=== PATIENT | female | born 1985 | race Caucasian/White ===

== ENCOUNTER 2018-10-09 07:51 | Outpatient (CLI) | payer BC | END 2018-10-09 10:20 | disposition home or self-care (01) | LOC: OBT 07:51 → L-D 07:52 → OBT 10:20 | DX: O36.5930 Maternal care for other known or suspected poor fetal growth, third trimester, not applicable or unspecified (principal); Z3A.36 36 weeks gestation of pregnancy | CPT/HCPCS: 76818 ==

== ENCOUNTER 2018-10-10 10:39 | Outpatient (CLI) | payer BC | END 2018-10-10 11:50 | disposition home or self-care (01) | LOC: OBT 10:39 → L-D 10:39 → OBT 11:50 | DX: O36.5930 Maternal care for other known or suspected poor fetal growth, third trimester, not applicable or unspecified (principal); Z3A.36 36 weeks gestation of pregnancy | CPT/HCPCS: 76818 ==

== ENCOUNTER 2018-10-15 07:09 | Inpatient (IN) | payer BC ==
[~2018-10-15 07:09] MED LIST: OXYTOCIN 30 UNITS/LR 500 ML BAG IV
[2018-10-15] MEDS ORDERED: OXYTOCIN 30 UNITS/LR 500 ML IV ×3 (08:00→09:30)
[2018-10-15] MEDS ORDERED: CEFAZOLIN 2 GM/50 ML (PMX) 50 ML IVPB (08:00)
[2018-10-15] MEDS ORDERED: CARBOPROST 250 MCG INJ IM ×2 (08:00→09:30)
[2018-10-15] MEDS ORDERED: MISOPROSTOL 200 MCG TAB PR ×2 (08:00→09:30)
[2018-10-15] MEDS ORDERED: METHYLERGONOVINE 0.2 MG INJ IM ×2 (08:00→09:30)
[2018-10-15 08:04] LABS: ADD MAN DIFF? NO
[2018-10-15 08:06] LABS: WHITE BLOOD COUNT 7.8 10^3/ul (4.8-10.8)
[2018-10-15 08:06] LABS: BASOPHILS % 0.4 % (0.0-2.0); EOSINOPHILS # 0.1 10^3/ul (0.0-0.5); EOSINOPHILS % 0.8 % (0.0-7.0); HEMATOCRIT 37.2 % (37.0-47.0); LYMPHOCYTES # 1.6 10^3/ul (0.8-2.9); LYMPHOCYTES % 20.4 % (15.0-51.0); MEAN CORPUSCULAR HEMOGLOBIN 30.3 pg (29.0-33.0); MEAN CORPUSCULAR HGB CONC 32.3 g/dl (32.0-37.0); MEAN CORPUSCULAR VOLUME 93.9 fl (82.0-101.0); MEAN PLATELET VOLUME 12.9 fl (7.4-10.4); MONOCYTE # 0.6 10^3/ul (0.3-0.9); MONOCYTES % 7.1 % (0.0-11.0); NEUTROPHIL # 5.6 10^3/ul (1.6-7.5); NEUTROPHILS % 70.9 % (39.0-77.0); PLATELET COUNT 220 10^3/UL (140-415); RED BLOOD COUNT 3.96 10^6/ul (4.20-5.40); RED CELL DISTRIBUTION WIDTH 12.6 % (11.5-14.5)
[2018-10-15] MEDS: LACTATED RINGER'S 1,000 ML IV ×2 (08:19→09:06)
[2018-10-15 08:27] LABS: PARTIAL THROMBOPLASTIN TIME 28.5 Sec (23.0-35.0); PROTIME 12.3 Sec (11.9-14.9)
[2018-10-15 09:06] LABS: HEPATITIS B SURFACE ANTIGEN NEGATIVE (NEGATIVE)
[2018-10-15] MEDS ORDERED: morphine SULFATE/PF (10 MG/10 ML) INJ (09:20)
[2018-10-15] MEDS ORDERED: ONDANSETRON 4 MG INJ (09:20)
[2018-10-15] MEDS ORDERED: PHENYLephrine (100 MCG/ML) 10ML SYG (09:20)
[2018-10-15] MEDS ORDERED: OXYTOCIN 10 UNIT INJ (09:20)
[2018-10-15] MEDS: CEFAZOLIN 2 GM/50 ML (PMX) 50 ML IVPB ×2 (09:28→17:51)
[2018-10-15] MEDS ORDERED: METHYLERGONOVINE 0.2 MG TAB PO (09:30)
[2018-10-15] MEDS ORDERED: HYDROCODONE/APAP (5/325) TAB PO ×2 (09:30)
[2018-10-15] MEDS ORDERED: NA PHOSPHATE/BIPHOS 133 ML ENEMA PR (09:30)
[2018-10-15] MEDS ORDERED: LANOLIN HPA 1 PKT TOP (09:30)
[2018-10-15] MEDS: KETOROLAC 30 MG INJ IV ×3 (09:30→21:32)
[2018-10-15 10:21] LABS: CBV Base Excess -3.1 mmol/L; CBV COHb 0.9 %; CBV Oxygen Sat 53.4 mmHG; Cord Blood Venous AADO2 69.1 mmHg; Cord Blood Venous pO2 24.7 mmHG (15.0-45.0); Fraction OxyHgb Cord Venous 52.3 %; MODE ROOM AIR; MetHgb Cord Venous 1.2 %; Sample Type CBV; Site CORD
[2018-10-15 10:24] LABS: AADO2 Cord Arterial 59.7 mmHg; Arterial Cord Blood pCO2 59.8 mmHG (25-50); CBA Base Excess -5.7 mmol/L; CBA COHb 0.2 %; CBA Oxygen Sat 24.6 mmHG; CBA Total Hemglobin 16.5 g/dl; Cord Blood Arterial pO2 18.4 mmHG (15.0-45.0); Fraction OxyHgb Cord Arterial 24.1 %; MODE ROOM AIR; MetHgb Cord Arterial 1.7 %; Sample Type CBA; Site CORD
[2018-10-15] MEDS: OXYTOCIN 30 UNITS/LR 500 ML IV (10:53)
[2018-10-15] MEDS ORDERED: NALOXONE (0.4 MG/ML) INJ IV (11:00)
[2018-10-15] MEDS ORDERED: DIPHENHYDRAMINE 50 MG INJ IV (11:00)
[2018-10-15] MEDS ORDERED: morphine 2 MG INJ IV (11:00)
[2018-10-15] MEDS ORDERED: KETOROLAC 30 MG INJ IV (11:00)
[2018-10-15] MEDS: IBUPROFEN 800 MG TAB PO ×2 (14:00→22:00)
[2018-10-15] MEDS: ONDANSETRON 4 MG INJ IV (15:05)
[2018-10-15 15:10] LABS: RAPID PLASMA REAGIN NONREACTIVE (NR)
[2018-10-15] MEDS: SENNA/DOCUSATE NA (8.6MG/50MG) TAB PO (21:32)
[2018-10-16] MEDS: CEFAZOLIN 2 GM/50 ML (PMX) 50 ML IVPB (01:02)
[2018-10-16] MEDS: KETOROLAC 30 MG INJ IV ×2 (03:33→09:37)
[2018-10-16] MEDS: IBUPROFEN 800 MG TAB PO ×3 (05:20→21:25)
[2018-10-16 08:25] LABS: ADD MAN DIFF? NO
[2018-10-16 08:36] LABS: BASOPHILS % 0.1 % (0.0-2.0); EOSINOPHILS # 0.1 10^3/ul (0.0-0.5); EOSINOPHILS % 0.8 % (0.0-7.0); HEMATOCRIT 31.9 % (37.0-47.0); HEMOGLOBIN 10.5 g/dl (12.0-16.0); LYMPHOCYTES % 12.9 % (15.0-51.0); MEAN CORPUSCULAR HEMOGLOBIN 30.7 pg (29.0-33.0); MEAN CORPUSCULAR HGB CONC 32.9 g/dl (32.0-37.0); MEAN CORPUSCULAR VOLUME 93.3 fl (82.0-101.0); MEAN PLATELET VOLUME 12.6 fl (7.4-10.4); MONOCYTE # 0.4 10^3/ul (0.3-0.9); MONOCYTES % 4.6 % (0.0-11.0); NEUTROPHIL # 6.5 10^3/ul (1.6-7.5); NEUTROPHILS % 81.3 % (39.0-77.0); PLATELET COUNT 179 10^3/UL (140-415); RED BLOOD COUNT 3.42 10^6/ul (4.20-5.40); RED CELL DISTRIBUTION WIDTH 12.9 % (11.5-14.5)
[2018-10-16] MEDS: SENNA/DOCUSATE NA (8.6MG/50MG) TAB PO ×2 (09:37→21:25)
[2018-10-16] MEDS: BISACODYL (EC) 5 MG TAB PO (12:57)
[2018-10-17] MEDS: IBUPROFEN 800 MG TAB PO ×3 (05:45→21:38)
[2018-10-17] MEDS: SENNA/DOCUSATE NA (8.6MG/50MG) TAB PO ×2 (09:37→21:38)
[2018-10-18] MEDS: IBUPROFEN 800 MG TAB PO ×2 (06:23→14:01)
[2018-10-18] MEDS: SENNA/DOCUSATE NA (8.6MG/50MG) TAB PO (08:45)
[2018-10-18] MEDS: DIPHTH/TET/ACEL PERTUSS (ADULT) 0.5 ML VIAL IM* (08:46)
[2018-10-18] MEDS: MEASLES,MUMPS,RUBELLA VACCINE INJ SC* (09:00)
== END 2018-10-18 15:25 | disposition home or self-care (01) | DRG 785 ==
LOC: L-D 07:09 → PP1 13:29
PROVIDERS: Obstetrics & Gynecology
PROC: 10D00Z1 Extraction of Products of Conception, Low, Open Approach (ICD-10-PCS; principal; 2018-10-15 09:00)
PROC: 0UT70ZZ Resection of Bilateral Fallopian Tubes, Open Approach (ICD-10-PCS; 2018-10-15 09:00)
DX: O34.211 Maternal care for low transverse scar from previous cesarean delivery (principal); O36.5930 Maternal care for other known or suspected poor fetal growth, third trimester, not applicable or unspecified; O99.013 Anemia complicating pregnancy, third trimester; Z3A.37 37 weeks gestation of pregnancy; Z37.0 Single live birth; Z30.2 Encounter for sterilization
CPT/HCPCS: 36415; 36600; 82803; 85025; 85610; 85730; 86592; 86850; 86900; 86901; 87340; 88302; 90715; 99464